=== PATIENT | male | born 1975 | race Caucasian/White ===

== ENCOUNTER 2020-12-29 12:58 | Emergency (ER) | payer SELFPAY ==
[2020-12-29 14:14] LABS: Urine Blood Negative (Negative); Urine Glucose Negative (Negative); Urine Protein Negative (Negative); Urine Specific Gravity <=1.005 (1.005-1.030); Urine pH 5.5 (5.0-7.0)
[2020-12-29] MEDS ORDERED: NA CHLORIDE 0.9% 1,000 ML ONE (14:22)
[2020-12-29 14:48] LABS: Absolute Lymphocytes (CBC) 1.1 K/uL (0.7-4.9); Basophils % 0.6 % (0-1.3); Hematocrit 40.5 % (39.6-49.0); Lymphocytes % 23.5 % (15.3-44.8); MPV 7.6 fL (7.6-11.3); RBC Red Blood Cell Count 4.13 M/uL (4.33-5.43)
[2020-12-29 15:07] LABS: Potassium 3.5 mmol/L (3.5-5.1)
--- NOTE | 2020-12-29 16:12 | EDPHYS ---
Physician Documentation [facility] Name: Michael Ann Age: 45 yrs Sex: Male : 1975 Arrival Date: 12/29/2020 Time: 13:02 Bed 2 Private MD: ED Physician Ajay Calderon HPI: 12/29 14:25 This 45 yrs old Male presents to ER via EMS with complaints of Blood Pressure rn Problem. 14:25 Patient reports had [facility] [place] re[facility] for alcohol, now sober for 3 days, they check rn his blood pressure every 2 hours and was told today was running lower than normal. Patient reports has been drinking a lot of water. Denies any vomiting or diarrhea. Denies any focal pain. Denies any cough or shortness of breath. No fever. Does report normally takes blood pressure but since arrival there they have added clonidine and Ativan for withdrawal symptoms. Reports feels a little lightheaded when stands up but otherwise feels okay.. Onset: The symptoms/episode began/occurred today. Severity of symptoms: At their worst the symptoms were mild in the emergency department the symptoms are unchanged. The patient has not experienced similar symptoms in the past. The patient has not recently seen a physician. Historical: - Allergies: 13:18 No Known Allergies; ld1 - Home Meds: 13:18 losartan 50 mg oral tab 1 tab 2 times per day [Active]; sertraline 50 mg oral tab 1 tab ld1 once daily [Active]; lorazepam 2 mg Oral tab 1 tab once daily [Active]; - PMHx: 13:19 Hypertensive disorder; ld1 - PSHx: 13:19 None; ld1 - Immunization history:: Adult Immunizations up to date, Client reports having NOT received the Covid vaccine. - Social history:: Smoking status: Patient denies any tobacco usage or history of. Patient uses alcohol. - Family history:: not pertinent. - Hospitalizations: : No recent hospitalization is reported. ROS: 14:25 Constitutional: Negative for fever, chills, and weight loss, Eyes: Negative for injury, rn pain, redness, and discharge, Neck: Negative for injury, pain, and swelling, Cardiovascular: Negative for chest pain, palpitations, and edema, Respiratory: Negative for shortness of breath, cough, wheezing, and pleuritic chest pain, Abdomen/GI: Negative for abdominal pain, nausea, vomiting, diarrhea, and constipation, Back: Negative for injury and pain, : Negative for injury, bleeding, discharge, and swelling, MS/Extremity: Negative for injury and deformity, Skin: Negative for injury, rash, and discoloration, Neuro: Negative for headache, numbness, tingling, and seizure. Exam: 14:25 Constitutional: This is a well developed, well nourished patient who is awake, alert, rn and in no acute distress. Ambulatory to room without difficulty or assistance Head/Face: Normocephalic, atraumatic. Eyes: Periorbital areas with no swelling, redness, or edema. Neck: Trachea midline, no thyromegaly or masses palpated, and no cervical lymphadenopathy. Supple, full range of motion without nuchal rigidity, or vertebral point tenderness. No Meningismus. Cardiovascular: Tachycardic, regular. No pulse deficits. Respiratory: No increased work of breathing, no retractions or nasal flaring. Abdomen/GI: Soft, non-tender Skin: Warm, dry MS/ Extremity: Pulses equal, no cyanosis. Neurovascular intact. Full, normal range of motion. Equal circumference. Neuro: Awake and alert, GCS 15, oriented to person, place, time, and situation. Cranial nerves II-XII grossly intact. Motor strength 5/5 in all extremities. Sensory grossly intact. Cerebellar exam normal. Normal gait. 16:08 ECG was reviewed by the Attending Physician. rn Vital Signs: 13:17 BP 116 / 80; Pulse 107; Resp 18; Temp 98.1(O); Pulse Ox 97% on R/A; Weight 81.65 kg; ld1 Height 6 ft. 1 in. (185.42 cm); Pain 0/10; 14:33 Pulse 86; Resp 17; Pulse Ox 99% on R/A; tw2 14:37 BP 91 / 61 Supine; Pulse 79; Resp 17; Pulse Ox 100% on R/A; tw2 14:38 BP 89 / 64 Sitting; Pulse 76; tw2 14:40 BP 93 / 67 Standing; Pulse 95; tw2 15:00 BP 92 / 71; Pulse 68; Resp 17; Pulse Ox 98% on R/A; tw2 16:00 BP 102 / 81; Pulse 63; Resp 17; Pulse Ox 100% on R/A; tw2 17:11 BP 113 / 81; Pulse 76; Resp 17; Temp 97.7(O); Pulse Ox 100% ; Pain 0/10; jh6 13:17 Body Mass Index 23.75 (81.65 kg, 185.42 cm) ld1 14:40 pt reports lightheadness when standing. provider notified. tw2 MDM: 14:07 Patient medically screened. rn 16:08 Differential Diagnosis dehydration, adverse effect of medication. Data reviewed: vital rn signs, nurses notes, lab test result(s), EKG, and as a result, I will discharge patient. 16:08 Counseling: I had a detailed discussion with the patient and/or guardian regarding: the rn historical points, exam findings, and any diagnostic results supporting the discharge/admit diagnosis, lab results, radiology results, the need for outpatient follow up, to return to the emergency department if symptoms worsen or persist or if there are any questions or concerns that arise at home. Response to treatment: the patient's symptoms have mildly improved after treatment, and as a result, I will discharge patient. Special discussion: I discussed with the patient/guardian in detail that at this point there is no indication for admission to the hospital. It is understood, however, that if the symptoms persist or worsen the patient needs to return immediately for re-evaluation. ED course: No acute findings here. Blood pressure improved with fluids. No focal neurological deficits. No complaints of chest pain. Most likely combination of dehydration and medications that have been added at rehab facility such as clonidine and Ativan.. 12/29 14:13 Order name: Urine Dipstick-Ancillary; Complete Time: 14:15 EDIA 12/29 14:15 Order name: CBC with Diff; Complete Time: 15:11 rn 12/29 14:02 Order name: Urine Dipstick-Ancillary (obtain specimen); Complete Time: 14:02 ld1 12/29 14:15 Order name: Basic Metabolic Panel; Complete Time: 15:11 rn 12/29 14:15 Order name: EKG; Complete Time: 14:16 rn 12/29 14:15 Order name: IV Start; Complete Time: 14:48 rn 12/29 14:15 Order name: EKG - Nurse/Tech; Complete Time: 14:33 rn 12/29 14:16 Order name: Orthostatics; Complete Time: 14:45 rn EC:08 Rate is 81 beats/min. Rhythm is regular. QRS [place] is Normal. MD interval is normal. QRS rn interval is normal. QT interval is normal. No Q waves. T waves are Flattened in leads II, III, aVF, V4, V5, V6. No ST changes noted. Clinical impression: NSR w/ Non-specific ST/T Changes. Interpreted by me. Reviewed by me. Administered Medications: 14:45 Drug: NS 0.9% 1000 ml Route: IV; Rate: 1000 ml; Site: right antecubital; tw2 17:14 Follow up: IV Status: Completed infusion; IV Intake: 1000ml 6 Disposition Summary: 12/29/20 16:12 Discharge Ordered Location: Home rn Problem: new rn Symptoms: have improved rn Condition: Stable rn Diagnosis - Encounter for general adult medical examination without abnormal findings rn - Orthostatic hypotension rn Followup: rn - With: Private Physician - When: As needed - Reason: Recheck today's complaints, Re-evaluation by your physician Discharge Instructions: - Discharge Summary Sheet rn - Hypotension rn - Orthostatic Hypotension rn Forms: - Medication Reconciliation Form rn - Thank You Letter rn - Antibiotic cistern room working supervisor - Prescription Opioid Use rn Signatures: Dispatcher [employer] Ajay Méndez MD MD rn Wise, Tara RN RN tw2 Hawa Mckee RN RN ld1 Onelia Diaz RN jh6
--- NOTE | 2020-12-29 16:12 | ER ---
Nurse's Notes [facility] Name: Michael Ann Age: 45 yrs Sex: Male : 1975 Arrival Date: 12/29/2020 Time: 13:02 Bed 2 Private MD: Diagnosis: Encounter for general adult medical examination without abnormal findings;Orthostatic hypotension Presentation: 12/29 13:17 Chief complaint: Patient states: I am currently at [facility], my blood pressure was ld1 low this morning. Upon arrival to ER BP 116/80. Coronavirus screen: At this time, the client does not indicate any symptoms associated with coronavirus-19. Ebola Screen: No symptoms or risks identified at this time. Initial Sepsis Screen: Does the patient meet any 2 criteria? No. Patient's initial sepsis screen is negative. Does the patient have a suspected source of infection? No. Patient's initial sepsis screen is negative. Risk Assessment: Do you want to hurt yourself or someone else? Patient reports no desire to harm self or others. Onset of symptoms was December 29, 2020. 13:17 Method Of Arrival: EMS: [facility] ld1 13:17 Acuity: MITA 3 ld1 Triage Assessment: 13:19 General: Appears in no apparent distress. comfortable, Behavior is calm, cooperative, ld1 appropriate for age. Pain: Denies pain. EENT: No signs and/or symptoms were reported regarding the EENT system. Neuro: Level of Consciousness is awake, alert, obeys commands, Oriented to person, place, time, situation, Appropriate for age. Cardiovascular: Capillary refill < 3 seconds Patient's skin is warm and dry. Respiratory: Airway is patent Respiratory effort is even, unlabored, Respiratory pattern is regular, symmetrical. GI: Abdomen is flat, non-distended. : No signs and/or symptoms were reported regarding the genitourinary system. Derm: No signs and/or symptoms reported regarding the dermatologic system. Musculoskeletal: No signs and/or symptoms reported regarding the musculoskeletal system. Historical: - Allergies: 13:18 No Known Allergies; ld1 - Home Meds: 13:18 losartan 50 mg oral tab 1 tab 2 times per day [Active]; sertraline 50 mg oral tab 1 tab ld1 once daily [Active]; lorazepam 2 mg Oral tab 1 tab once daily [Active]; - PMHx: 13:19 Hypertensive disorder; ld1 - PSHx: 13:19 None; ld1 - Immunization history:: Adult Immunizations up to date, Client reports having NOT received the Covid vaccine. - Social history:: Smoking status: Patient denies any tobacco usage or history of. Patient uses alcohol. - Family history:: not pertinent. - Hospitalizations: : No recent hospitalization is reported. Screenin:48 Abuse screen: Denies threats or abuse. Nutritional screening: No deficits noted. tw2 Tuberculosis screening: No symptoms or risk factors identified. Fall Risk None identified. Assessment: 14:47 Reassessment: Patient appears in no apparent distress at this time. No changes from tw2 previously documented assessment. Patient and/or family updated on plan of care and expected duration. Pain level reassessed. Patient is alert, oriented x 3, equal unlabored respirations, skin warm/dry/pink. 16:25 Reassessment: Patient appears in no apparent distress at this time. No changes from tw2 previously documented assessment. Patient and/or family updated on plan of care and expected duration. Pain level reassessed. Patient is alert, oriented x 3, equal unlabored respirations, skin warm/dry/pink. 17:13 Reassessment: Patient is alert, oriented x 3, equal unlabored respirations, skin jh6 warm/dry/pink. Patient denies pain at this time. Patient states feeling better. Patient states symptoms have improved. Pt alert and able to stand without dizziness and or pain. Vital Signs: 13:17 BP 116 / 80; Pulse 107; Resp 18; Temp 98.1(O); Pulse Ox 97% on R/A; Weight 81.65 kg; ld1 Height 6 ft. 1 in. (185.42 cm); Pain 0/10; 14:33 Pulse 86; Resp 17; Pulse Ox 99% on R/A; tw2 14:37 BP 91 / 61 Supine; Pulse 79; Resp 17; Pulse Ox 100% on R/A; tw2 14:38 BP 89 / 64 Sitting; Pulse 76; tw2 14:40 BP 93 / 67 Standing; Pulse 95; tw2 15:00 BP 92 / 71; Pulse 68; Resp 17; Pulse Ox 98% on R/A; tw2 16:00 BP 102 / 81; Pulse 63; Resp 17; Pulse Ox 100% on R/A; tw2 17:11 BP 113 / 81; Pulse 76; Resp 17; Temp 97.7(O); Pulse Ox 100% ; Pain 0/10; jh6 13:17 Body Mass Index 23.75 (81.65 kg, 185.42 cm) ld1 14:40 pt reports lightheadness when standing. provider notified. tw2 ED Course: 13:02 Patient arrived in ED. mr 13:18 Triage completed. ld1 13:19 Arm band placed on right wrist. ld1 14:07 Ajay Calderon MD is Attending Physician. rn 14:07 Bed in low position. Call light in reach. Pulse ox on. NIBP on. tw2 14:19 Jaleesa Lunsford, RN is Primary Nurse. tw2 14:40 Inserted saline lock: 20 gauge in right antecubital area, using aseptic technique. tw2 ,using aseptic technique. by ALEC Chairez. Accessed Blood collected. from 22 butterfly needle, pressure dressing applied. 16:24 Awaiting: completion of IV fluids prior to discharge. tw2 17:12 No provider procedures requiring assistance completed. IV discontinued, intact, jh6 bleeding controlled, No redness/swelling at site. Pressure dressing applied. Administered Medications: 14:45 Drug: NS 0.9% 1000 ml Route: IV; Rate: 1000 ml; Site: right antecubital; tw2 17:14 Follow up: IV Status: Completed infusion; IV Intake: 1000ml 6 Intake: 17:14 IV: 1000ml; Total: 1000ml. 6 Outcome: 16:12 Discharge ordered by . rn 17:12 Discharged to home ambulatory. 6 17:12 Condition: improved 17:12 Discharge instructions given to patient, Instructed on discharge instructions, follow up and referral plans. 17:15 Patient left the ED. 6 Signatures: Joyce Castellon mr Ajay Calderon MD MD rn Wise, Tara, RN RN tw2 Hawa Mckee RN RN ld1 Onelia Diaz RN RN 6
[2020-12-29 17:38] VITALS: O2SAT 100
[2020-12-29 17:41] VITALS: BP 113/81; TEMP 97.7
== END 2020-12-29 17:15 | disposition home or self-care (01) ==
LOC: ER 12:58
DX: I95.1 Orthostatic hypotension (principal); I10 Essential (primary) hypertension
CPT/HCPCS: 36415; 80048; 81003; 85025; 93005; 96360; 96361; 99284; J7030